=== PATIENT | male | born 1955 ===

== ENCOUNTER → 2018-08-27 | Outpatient (CLI) | payer OTHER ==
[~2018-08-27] MED LIST: BUPIVACAINE MPF 0.25% 10 ML VIAL. ONE; IOHEXOL 180 MG/ML 10 ML VIAL. ONE; LIDOCAINE 1% PF 2 ML VIAL. ONE; methylPREDNISolone ACETATE 80 MG/ML VIAL. ONE
--- NOTE | 2018-08-27 16:36 | PAIN ---
DATE OF SERVICE: 08/27/2018 CHIEF COMPLAINT: Low back and left lower extremity pain. HISTORY OF PRESENT ILLNESS: This is a 62-year-old male who presents with history of pain in the low back and left lower extremity for about 7 months. The patient reports he has had some physical therapy as well as exercising, counseling and even an epidural injection at [facility] [place] earlier in August, which did not help the pain. The patient reports stretching exercises helped to some extent. He is considering getting an inversion table, which he would like to try. The patient reports otherwise therapies and stretching exercises he is doing on his own as well as injection have not been helpful. The patient reports that the pain is in the low back, radiating to the left lateral anterior thigh, anterior medial thigh, medial calf on the left side only and anterior thigh as well as across the low back, again worse on the left. The patient reports it is tingling and radiating, becoming more constant, sharp, stabbing, throbbing, shooting, sometimes aching and cold in the left leg as well. The patient reports it wakes him from sleep at least 2-4 times at night, does not affect his bowel or bladder control, does affects his ability to walking using a cane in his right hand. The patient did have MRI scan of the lumbar spine showing degenerative disk changes at the level L4-L5, superior endplate L5 with smallest node, osteophyte and disk causing a broad shallow anterior epidural effect with lateral recess compromise at the disk level in the inferior recess as a compromise, worse on the left side with mid sagittal spinal canal diameter of about 13 mm with disk height reduced. L5 shows asymmetric osteophyte disk complex compromising anterior epidural space and lateral recess with more focal protrusion in the right parasagittal region. The patient reports disability rate from 0-10, 10 being the worst, is a 7 with family, home responsibilities, and social activity, 10 with recreation and sexual behavior, 0 with occupation, 4 with self-care and 3 with life support activities. The patient reports no loss of motor function, but significant fatigability at the left leg with walking, standing, even sitting for prolonged periods. PAST MEDICAL HISTORY: Significant for hypertension, arthritis, kidney disease, elevated platelets. PREVIOUS SURGERY: Includes cervical fusion in 1999 and in 2006, inguinal hernia repair, tonsillectomy as a child and cholecystectomy in the past. ALLERGIES: The patient has no known drug allergies. CURRENT MEDICATIONS: Include amlodipine, loratadine, trazodone, diclofenac, Tylenol, hydroxyurea, riboflavin, magnesium, duloxetine, prazosin, carboxymethylcellulose, daily baby aspirin, valacyclovir, capsaicin, duloxetine, and zolpidem. FAMILY HISTORY: Significant for cancers, heart disease and diabetes. SOCIAL HISTORY: The patient does not drink alcohol, does not smoke, does not use any illegal, illicit or recreational drugs. He is single, lives locally in [place], [place]. REVIEW OF SYSTEMS: The patient's review of systems is positive for those items mentioned in history of present illness. All systems reviewed and otherwise negative. It is complete, full and well documented on the patient's chart. PHYSICAL EXAMINATION: VITAL SIGNS: Blood pressure 133/79, pulse 70, respirations 16, temperature 97.3 degrees Fahrenheit. Height 5 feet 9.5 inches, weight 209 pounds. GENERAL: The patient is awake, alert, oriented, appropriate, very pleasant demeanor. HEENT: Head shows normocephalic, atraumatic. Extraocular movements intact and symmetrical. Oral cavity: Mucous membranes moist and pink. Dentition intact. NECK: Shows anterior throat supple without palpable lymphadenopathy noted. Swallow reflex symmetrical. CHEST: Shows normal with inspection. Breath sounds clear to auscultation bilaterally. HEART: Shows S1, S2 clear. No murmurs auscultated. ABDOMEN: Soft, nontender, nondistended. No palpable organomegaly is noted. No rebound or guarding demonstrated. BACK: Shows spine grossly in the midline. Normal appearing cervical lordotic curvature as well as thoracic and lumbar kyphosis. The patient's back shows good rotational motion both laterally greater than 10 degrees right and left as well as extension greater than 10 degrees, forward flexion 45 degrees without significant pain or difficulty. The patient shows no tenderness over the sacrum, sacroiliac regions or other spinous processes. EXTREMITIES: The patient's lower extremities show deep tendon reflexes at 2+ patellar, 1+ tendo-calcaneus tendons. Motor exam is approximately 4 on a scale 5 on the left and 5/5 on the right consistent with quadriceps and hamstring flexion 4/5 left and 5/5 right as well. Peripheral pulses are 1+ posterior tibial. No peripheral edema is noted. He does have a mild positive straight leg raise on the left side about 40 degrees with decreased knee flexion; right side is negative. Gaenslen's and Williams's maneuvers are negative bilaterally. Lower extremities are warm and dry to touch, equal in color and appearance. The patient is able to stand, stand on his toes without significant difficulty, does have a slight favoring gait favoring left lower extremity. He is walking with a limp again using a cane in his right hand. SKIN: Shows warm and dry, good turgor. No edema. No sores, rashes or bruising. IMPRESSION: This is a 62-year-old male with, 1. Approximately 7-month history of increasing pain, low back, left lower extremity in a radicular fashion in the left L4-L5 dermatomal distribution. 2. MRI scan of lumbar spine as noted. 3. Arthritis. 4. Hypertension. 5. Increased platelets. PLAN: Options were discussed with the patient including including conservative medical management, physical therapy, interventional techniques and he would like to pursue with interventional techniques. We discussed a left-sided L4-L5 transforaminal injection using description as well as anatomical models to describe the procedure. . Risks were then discussed including, but not limited to, bleeding, infection, possibility of epidural hematoma and subsequent neurological compromise, dural puncture, headaches, spinal cord and/or nerve damage, potential injection of the vertebral artery at that level and permanent ischemic damage as well as side effects of steroid medication and exposure of fluoroscopy as well as poor results regarding pain control. The patient understands and wished to proceed. The patient will return to clinic in approximately 2 weeks for followup, was counseled on return appointment, activity level and side effects to be aware of. DIAGNOSES: Lumbar radiculopathy with lumbar degenerative disk disease. PROCEDURES: Left L4-L5 transforaminal epidural steroid injection using C-arm fluoroscopic guidance under sterile prep and drape using local anesthetic. MEDICATION INJECTED: A total of 80 mg Depo-Medrol plus total of 2 mL of 0.25% bupivacaine and 1.5 mL of Isovue for contrast. CONDITION AT DISCHARGE: Stable. The patient tolerated the procedure well, had no complications. TESSIE MOORE MD DR: ANGELA/gary JOB#: [id number] / [id number]
== END | disposition home or self-care (01) ==
LOC: PNCL 08:23
PROVIDERS: ATTEND Anesthesiology
DX: M51.16 Intervertebral disc disorders with radiculopathy, lumbar region (principal); I10 Essential (primary) hypertension; M19.90 Unspecified osteoarthritis, unspecified site; Z98.1 Arthrodesis status; Z90.49 Acquired absence of other specified parts of digestive tract; Z98.890 Other specified postprocedural states; Z82.49 Family history of ischemic heart disease and other diseases of the circulatory system; Z83.3 Family history of diabetes mellitus; Z79.82 Long term (current) use of aspirin; Z79.899 Other long term (current) drug therapy
CPT/HCPCS: 64483; J1040; J3490; Q9965

== ENCOUNTER → 2018-09-18 | Outpatient (CLI) | payer OTHER ==
[~2018-09-18] MED LIST changes: +AMLO10TA6 PO; +ASPI-630 PO; +CARB15DR3 EACHEYE; +DULO30CA2 PO; +DULO60CA6 PO; +HYDR500C16 PO; -LIDOCAINE 1% PF 2 ML VIAL. ONE; +LORA10TA55 PO; +MAGN400T3 PO; +PRAZ5CAP2 PO; +RIBO100T PO; +TRAZ-86 PO; +VALA500T PO; +ZOLP10TA4 PO
--- NOTE | 2018-09-18 12:32 | PAIN ---
DATE OF SERVICE: 09/18/2018 PROGRESS NOTE FOR PAIN CLINIC DIAGNOSES: Lumbar radiculopathy with lumbar degenerative disk disease. HISTORY OF PRESENT ILLNESS: The patient is a 62-year-old male who returns for followup status post left L4-L5 transforaminal injection x 1 with about 50% improvement overall. The patient reports still pain in the left leg radiating in the low back and the lateral thigh, lateral anterior thigh, medial thigh, medial lower leg, but is much better than it was. The patient to increase his activity, walking greater distances, walk without his cane for a while, but is using it again now. The patient reports he did better for about 2 weeks. The pain is returning, but not to the point it was, still about 50% improved overall. The patient reports no new motor or sensory deficits, no new bowel or bladder incontinence or other complaints. The patient rates his pain as 7 on a scale of 10 at its worst, average and a 4 at its least and is a 4 today. The patient reports it is radiating, shooting, becoming more constant, more noticeable especially with walking. The patient reports no new motor or sensory deficits, no bowel or bladder incontinence or other complaints. PHYSICAL EXAMINATION: VITAL SIGNS: The patient's blood pressure 133/77, pulse 76, respirations 18, temperature 97.5 degrees Fahrenheit, weight is 211 pounds. GENERAL: The patient is awake, alert, oriented, appropriate, very pleasant demeanor. HEENT: Shows normocephalic, atraumatic. Extraocular movements intact and symmetrical. Oral cavity, mucous membranes moist and pink. Dentition intact. NECK: Shows anterior throat supple without palpable lymphadenopathy noted. Swallow reflex is symmetrical. CHEST: Shows normal on inspection. Breath sounds clear to auscultation bilaterally. HEART: Shows S1, S2 clear. No murmurs auscultated. ABDOMEN: Soft, nontender, nondistended. No palpable organomegaly is noted. No rebound or guarding demonstrated. BACK: Shows spine grossly in the midline. Normal appearing thoracic kyphosis and lumbar lordotic curvature. Lumbar paraspinous muscle shows symmetrical on inspection, with palpation shows some moderate tenderness diffusely bilaterally, but only with deeper palpation in the low lumbar distribution bilaterally. The patient has good rotational motion without any radiation of pain, both laterally as well as extension and flexion without difficulty. EXTREMITIES: Lower extremities show deep tendon reflexes at 2+ in the patellar, 1+ tendo calcaneus tendons. Motor exam is approximately 4 on a scale of 5 in the left dorsiflexion, extension, 5/5 on the right, but intact. Peripheral pulses are 1+ posterior tibial. No peripheral edema bilaterally. Options were discussed with the patient. The patient's old chart was reviewed as his current medication regimen updated. Current review of systems updated today as well. We will proceed with a second transforaminal injection at the L4-L5 level on the left today with fluoroscopic guidance. Risks were again discussed including, but not limited to bleeding, infection, possibility of epidural hematoma, subsequent neurologic compromise, dural puncture, headaches, spinal cord and/or nerve damage, side effects of steroid medication and poor results regarding pain control. The patient understands and wished to proceed. The patient will return to clinic in approximately 2 weeks for followup, was counseled on return appointment, activity level and side effects to be aware of. DIAGNOSES: Lumbar radiculopathy with lumbar degenerative disk disease. PROCEDURES: Lumbar epidural steroid injection, translaminar approach L4-L5 level using C-arm fluoroscopic guidance under sterile prep and drape using local anesthetic. MEDICATION INJECTED: A total of 80 mg Depo-Medrol plus 2 mL of 0.25% bupivacaine and 1.5 mL Isovue for contrast with no uptake and no washout with digital subtraction. CONDITION AT DISCHARGE: Stable. The patient tolerated the procedure well, had no complications. TESSIE MOORE MD DR: ANGELA/gary JOB#: [id number] / [id number]
== END | disposition home or self-care (01) ==
LOC: PNCL 09:54
PROVIDERS: ATTEND Anesthesiology
DX: M51.16 Intervertebral disc disorders with radiculopathy, lumbar region (principal); Z88.8 Allergy status to other drugs, medicaments and biological substances
CPT/HCPCS: 62323; J1040; J3490; Q9965; 64483

== ENCOUNTER → 2018-10-09 | Outpatient (CLI) | payer OTHER ==
[~2018-10-09] MED LIST changes: -BUPIVACAINE MPF 0.25% 10 ML VIAL. ONE; +methylPREDNISolone ACETATE 40 MG/ML VIAL. ONE
--- NOTE | 2018-10-09 10:15 | PAIN ---
DATE OF SERVICE: 10/09/2018 PROGRESS NOTE FOR PAIN CLINIC DIAGNOSIS: Lumbar radiculopathy with lumbar degenerative disk disease. HISTORY OF PRESENT ILLNESS: The patient is a 62-year-old male who returns status post lumbar transforaminal injections on the left at L4-L5 x 2. The patient reports initially did very well without 50% improvement with last injection has only about 20% improvement for about a week. The patient reports the pain is now across the low back on both sides and is having some radicular pain in the right lower extremity as well with posterior lateral thigh, lateral anterior thigh as well as on the left side in lateral anterior medial thigh. The patient reports it is aching, sharp, tingling, becoming more constant, radiating, shooting pain. The patient describes it as an 8 on a scale of 10 at its worst, 6 on average, 5 at its least and is a 6 today. The patient reports no new motor or sensory deficits and no new bowel or bladder incontinence but awakening his from sleep about every 4-5 hours. Initially, he was doing better with walking distances, doing household activities and traveling but now it is becoming more noticeable and more debilitating. The patient reports no new changes. No bowel or bladder incontinence or other complaints. PHYSICAL EXAMINATION: VITAL SIGNS: The patient's blood pressure 130/74, pulse 74, respirations are 18 and temperature 97.5 degrees Fahrenheit. Height is 5 feet 9 inches and weight is 212 pounds. GENERAL: The patient is awake, alert, oriented, appropriate and very pleasant demeanor. HEENT: Head shows normocephalic and atraumatic. Extraocular movements are intact and symmetrical. Oral cavity, mucous membranes are moist and pink. Dentition is intact. NECK: Shows anterior throat supple without palpable lymphadenopathy noted. Swallow reflex symmetrical. CHEST: Shows normal on inspection. Breath sounds clear to auscultation bilaterally. HEART: Shows S1 and S2 clear. No murmurs auscultated. ABDOMEN: Soft, nontender and nondistended. No palpable organomegaly is noted. No rebound or guarding demonstrated. BACK: Shows spine grossly in the midline. Normal appearing thoracic kyphosis and lumbar lordotic curvature. Lumbar paraspinous muscle shows symmetrical on inspection and palpation shows some moderate tenderness diffusely in the low lumbar distribution without radiation. EXTREMITIES: The patient's lower extremities show deep tendon reflexes at 2+ patellar, 1+ tendo-calcaneus tendons. Motor exam is approximately 4 on scale 5 with left dorsiflexion and extension, 5/5 on the right. Peripheral pulses are 1+ posterior tibial. No peripheral edema is noted bilaterally. Options were discussed with the patient. The patient's old chart was reviewed as well as his current medication regimen updated. Current review of systems updated today as well. We will proceed with a lumbar epidural steroid injection today and is the third total in this series. Risks were again discussed including, but not limited to bleeding, infection, possibility of epidural hematoma, subsequent neurologic compromise, dural puncture, headaches, spinal cord and/or nerve damage, side effects of steroid medication and poor results regarding pain control. The patient understands and wished to proceed. The patient will return to the clinic in approximately 2 weeks for followup, was counseled as to return appointment, activity level and side effects to be aware of. Also, we will recommend neurosurgical evaluation if the patient is not significantly improved. The patient would like to have [facility]. We will make those recommendations as if he is not significantly improved. He does have significant stenosis at the L4-L5 and L5-S1 with foraminal stenosis to severe level, each of these and we would recommend a neurosurgical evaluation if not significantly improved after today's injection. DIAGNOSIS: Lumbar radiculopathy with lumbar degenerative disk disease. PROCEDURE: Lumbar epidural steroid injection, translaminar approach, L4-L5 level using C-arm fluoroscopic guidance under sterile prep and drape using local anesthetic. MEDICATION INJECTED: A total of 120 mg Depo-Medrol plus 10 mL of preservative-free normal saline and 2 mL of Isovue for contrast. CONDITION AT DISCHARGE: Stable. The patient tolerated the procedure well, had no complications. TESSIE MOORE MD DR: ANGELA/gary JOB#: [id number] / [id number]
== END | disposition home or self-care (01) ==
LOC: PNCL 08:44
PROVIDERS: ATTEND Anesthesiology
DX: M51.16 Intervertebral disc disorders with radiculopathy, lumbar region (principal); Z88.8 Allergy status to other drugs, medicaments and biological substances
CPT/HCPCS: 62323; J1030; J1040; Q9965